=== PATIENT | female | born 1945 | race Caucasian/White ===

== ENCOUNTER 2017-07-07 19:03 | Inpatient (IN) | payer MEDICARE, MEDICAID ==
[2017-07-07 19:28] VITALS: BMI 29.0
[2017-07-07 20:35] LABS: BASO # 0.02 K/mm3 (0.0-2.0); BASO % 0.4 % (0.0-3.0); EOS % 0.6 % (1.5-5.0); GRAN # 2.34 (1.4-6.5); GRAN % 44.2 % (50.0-68.0); HEMOGLOBIN 11.3 g/dL (12.0-16.0); LYMPH # 2.4 (1.2-3.4); LYMPH % 45.2 % (22.0-35.0); MEAN CELL VOLUME 86.9 fl (80.0-105.0); MEAN CORPUSCULAR HEMOGLOBIN 27.8 pg (25.0-35.0); MEAN PLATELET VOLUME 10.1 fl (7.0-11.0); MONO # 0.5 (0.1-0.6); MONO % 9.6 % (1.0-6.0); RBC 4.06 10^6/uL (3.5-6.1); RED CELL DISTRIBUTION WIDTH 15.3 % (11.5-14.5); WHITE BLOOD COUNT 5.3 10^3/ul (4.5-11.0)
[2017-07-07 20:45] LABS: ALB/GLOB RATIO 1.1 (1.1-1.8); ALBUMIN 3.7 g/dL (3.0-4.8); ALT/SGPT 96 U/L (7-56); AST/SGOT 150 U/L (14-36); BLOOD UREA NITROGEN 29 mg/dL (7-21); CALCIUM 9.1 mg/dL (8.4-10.5); GFR AFRICAN-AMERICAN > 60; GFR NON-AFRICAN AMERICAN > 60; HDL CHOLESTEROL 31 mg/dL (29-60)
[2017-07-07 20:48] LABS: INR 1.02 (0.93-1.08); PARTIAL THROMBOPLASTIN TIME 27.2 Seconds (25.1-36.5); PROTHROMBIN TIME 11.6 SECONDS (9.4-12.5)
[2017-07-07 20:56] LABS: LDL CHOLESTEROL 113 mg/dL (0-129)
[2017-07-07 20:58] LABS: TROPONIN I < 0.01 ng/mL
--- NOTE | 2017-07-07 21:18 | ED PDOC ---
Arrival/HPI - General Chief Complaint: Trauma Time Seen by Provider: 07/07/17 19:18 Historian: Patient - History of Present Illness Narrative History of Present Illness (Text): 07/07/17 19:40 Briana Dobbins is a 72 year old female, whose past medical history includes TIA, who presents to the Emergency department complaining of recurrent falls. Patient states she has fallen multiple tomes over the past 3 days and notes associated left-sided weakness. Patient also report she was on the floor for approximately 16 hours 2 days prior after falling. Patient denies any fever, chest pain, shortness of breath, nausea, vomiting, neck pain, or any other complaints. Time/Duration: < week (3 days) Symptom Onset: Gradual Symptom Course: Unchanged Activities at Onset: Light Context: Home Past Medical History - Provider Review Nursing Documentation Reviewed: Yes - Tetanus Immunization Tetanus Immunization: Unknown - Cardiac Hx Cardiac Disorders: No Hx Pacemaker: No - Pulmonary Hx Respiratory Disorders: No - Neurological Hx Neurological Disorder: No Hx Paralysis: No - HEENT Hx HEENT Disorder: No - Renal Hx Renal Disorder: No - Endocrine/Metabolic Hx Endocrine Disorders: No - Hematological/Oncological Hx Blood Disorders: No Hx Blood Transfusions: No Hx Blood Transfusion Reaction: No - Integumentary Hx Dermatological Disorder: No - Musculoskeletal/Rheumatological Hx Musculoskeletal Disorders: Yes Hx Arthritis: Yes Hx Falls: Yes - Gastrointestinal Hx Gastrointestinal Disorders: No - Genitourinary/Gynecological Hx Genitourinary Disorders: No - Psychiatric Hx Psychophysiologic Disorder: No Hx Emotional Abuse: No Hx Physical Abuse: No Hx Substance Use: No - Surgical History Other/Comment: cervical fusion, bunion sx - Anesthesia Hx Anesthesia Reactions: No Hx Malignant Hyperthermia: No - Suicidal Assessment Feels Threatened In Home Enviroment: No Family/Social History - Physician Review Nursing Documentation Reviewed: Yes Family/Social History: Unknown Family HX Smoking Status: Never Smoked Hx Alcohol Use: No Hx Substance Use: No Allergies/Home Meds Allergies/Adverse Reactions: Allergies No Known Allergies Allergy (Verified 11/04/12 16:41) Home Medications: Home Meds Medication Instructions Recorded Confirmed Clopidogrel [Plavix] 75 mg PO DAILY 11/04/12 07/08/17 Valsartan [Diovan] 80 mg PO DAILY 11/04/12 07/08/17 Calcium Carbonate [Caltrate 600] 600 mg PO DAILY 06/26/13 06/26/13 Fish Oil 1 cap PO DAILY 06/26/13 06/26/13 Methotrexate [Methotrexate] 25 mg PO QD7 07/08/17 07/08/17 valACYclovir [Valtrex] 500 mg PO DAILY 07/08/17 07/08/17 Review of Systems - Physician Review All systems were reviewed & negative as marked: Yes - Review of Systems Constitutional: Normal. absent: Fevers Eyes: Normal ENT: Normal Respiratory: Normal. absent: SOB, Cough Cardiovascular: Normal. absent: Chest Pain Gastrointestinal: Normal. absent: Abdominal Pain, Diarrhea, Nausea, Vomiting Genitourinary Female: Normal. absent: Dysuria, Frequency, Hematuria, Urine Output Changes Musculoskeletal: Normal. absent: Back Pain, Neck Pain (+left-sided weakness) Skin: Normal. absent: Rash Neurological: Focal Weakness (+left-sided weakness), Other (+recurrent falls). absent: Dizziness Endocrine: Normal Hemo/Lymphatic: Normal Psychiatric: Normal Physical Exam Vital Signs Reviewed: Yes Vital Signs Temp Pulse Resp BP Pulse Ox 07/08/17 14:34 20 07/08/17 09:09 98.1 F 74 17 98 07/08/17 04:45 62 18 112/63 98 07/08/17 02:15 98.0 F 73 18 103/48 L 96 07/07/17 22:17 76 18 131/42 L 96 07/07/17 19:18 97.7 F 80 16 105/59 L 98 Temperature: Afebrile Blood Pressure: Normal Pulse: Regular Respiratory Rate: Normal Appearance: Positive for: Well-Appearing, Non-Toxic, Comfortable Pain Distress: None Mental Status: Positive for: Alert and Oriented X 3 - Systems Exam Head: Present: Atraumatic, Normocephalic Pupils: Present: PERRL Extroacular Muscles: Present: EOMI Conjunctiva: Present: Normal Mouth: Present: Moist Mucous Membranes Neck: Present: Normal Range of Motion Respiratory/Chest: Present: Clear to Auscultation, Good Air Exchange. No: Respiratory Distress, Accessory Muscle Use Cardiovascular: Present: Regular Rate and Rhythm, Normal S1, S2. No: Murmurs Abdomen: Present: Normal Bowel Sounds. No: Tenderness, Distention, Peritoneal Signs Back: Present: Normal Inspection Upper Extremity: Present: Normal Inspection. No: Cyanosis, Edema Lower Extremity: Present: Capillary Refill < 2 s, Other (Left lower extremity weakness). No: Edema, Tenderness, Swelling, Erythema, Deformity Neurological: Present: GCS=15, CN II-XII Intact, Speech Normal Skin: Present: Warm, Dry, Normal Color. No: Rashes Psychiatric: Present: Alert, Oriented x 3, Normal Insight, Normal Concentration Medical Decision Making ED Course and Treatment: 07/07/17 19:40 Impression: 72 year old female complaining of recurrent falls and left-sided weakness for 3 days. Plan: -- EKG -- Chest X-Ray -- CT Head w/o contrast -- Labs, lipid panel, troponin, blood type and screen -- Reassess and disposition Progress Notes: Reviewed EKG, NSR at [address] bpm[address] Non-specific ST/T wave changes. 07/07/17 23:16 Chest X-Ray reviewed, shows no acute processes. CT Head shows: Brain: Hypodense lacunar infarcts are identified within the bilateral basal ganglia. A few of these lacunar infarcts are too small to determine acuity. Otherwise, these findings are predominantly subacute or chronic. A small hypodense lacunar infarct is also visualized within the left thalamus. Hypodense lacunar infarcts are visualized within the shelbi, which appear to be subacute. There is extensive cerebral white matter hypodensity, likely representing small vessel ischemic disease in a patient this age. The acuity of the white matter disease is indeterminate. The white-hernandez differentiation is otherwise preserved demonstrating no acute territorial type infarct. No acute intracranial hemorrhage is seen. Midline shift: There is no midline shift. Ventricles: No ventriculomegaly. Bones/joints: The calvarium demonstrates no evidence for a depressed fracture. Soft tissues: No acute abnormality. Vasculature: There is atherosclerotic calcification of the cavernous internal carotid arteries. Sinuses: There is mucosal thickening of the bilateral ethmoid air cells, sphenoid sinuses, frontal sinuses and maxillary sinuses. Air-fluid levels are also visualized within the maxillary sinuses, right side greater than left. Mastoid air cells: No mastoid effusion. IMPRESSION: 1. Hypodense lacunar infarcts are identified within the bilateral basal ganglia. A few of these lacunar infarcts are too small to determine acuity. Otherwise, these findings are predominantly subacute or chronic. A small hypodense lacunar infarct is also visualized within the left thalamus. 2. Hypodense lacunar infarcts are visualized within the shelbi, which appear to be subacute. If further evaluation is clinically indicated, an MRI of the brain is recommended. 3. No acute intracranial hemorrhage. 4. There is extensive cerebral white matter hypodensity, likely representing small vessel ischemic disease in a patient this age. 5. Paranasal sinus disease is noted above. 07/07/17 23:[address] Sinclair, who is aware and agrees with plan. Accepts pt in to her service. Pt will go to remote telemetry for cerebral infarction. - Lab Interpretations Lab Results: 07/07/17 20:10 07/07/17 20:10 Lab Results 07/07/17 20:10: Blood Type O POSITIVE, Antibody Screen Negative, BBK History Checked No verified bt 07/07/17 20:10: Hemoglobin A1c 7.1 H 07/07/17 20:10: Sodium 137, Potassium 3.8, Chloride 100, Carbon Dioxide 29, Anion Gap 12, BUN 29 H, Creatinine 0.8, Est GFR ( Amer) > 60, Est GFR ( Non-Af Amer) > 60, Random Glucose 128 H, Calcium 9.1, Total Bilirubin 0.4, AST 150 H, ALT 96 H, Alkaline Phosphatase 77, Troponin I < 0.01, Total Protein 7.0, Albumin 3.7, Globulin 3.2, Albumin/Globulin Ratio 1.1, Triglycerides 155, Cholesterol 165, LDL Cholesterol Direct 113, HDL Cholesterol 31 07/07/17 20:10: PT 11.6, INR 1.02, APTT 27.2 07/07/17 20:10: WBC 5.3, RBC 4.06, Hgb 11.3 L, Hct 35.3 L, MCV 86.9, MCH 27.8, MCHC 32.0, RDW 15.3 H, Plt Count 229, MPV 10.1, Gran % 44.2 L, Lymph % (Auto) 45.2 H, [place] % (Auto) 9.6 H, Eos % (Auto) 0.6 L, Baso % (Auto) 0.4, Gran # 2.34 , Lymph # (Auto) 2.4, [place] # (Auto) 0.5, Eos # (Auto) 0.0, Baso # (Auto) 0.02 I have reviewed the lab results: Yes - RAD Interpretation Radiology Orders: 07/07/17 19:41 HEAD W/O CONTRAST [CT] Stat CHEST PORTABLE [RAD] Stat Asbestos Shingle Inspector: ED Physician, Radiologist - EKG Interpretation Interpreted by ED Physician: Yes Type: 12 lead EKG - Medication Orders Current Medication Orders: Acetaminophen (Tylenol 325mg Tab) 650 mg PO Q4H PRN PRN Reason: Pain, Mild (1-3) Aspirin (Ecotrin) 81 mg PO DAILY [facility] Last Admin: 07/09/17 10:01 Dose: Not Given Non-Admin Reason: Patient Refused Atorvastatin Calcium (Lipitor) 20 mg PO DIN [facility] Last Admin: 07/09/17 17:38 Dose: 20 mg Clopidogrel Bisulfate (Plavix) 75 mg PO DAILY [facility] Last Admin: 07/09/17 09:58 Dose: 75 mg Losartan Potassium (Cozaar) 50 mg PO DAILY [facility] Last Admin: 07/09/17 09:55 Dose: 50 mg MAR Pulse and Blood Pressure Document 07/09/17 09:55 BIR (Rec: 07/09/17 09:56 BIR [id number]) Pulse Pulse Rate (60-90) 73 Blood Pressure Blood Pressure (100/60-150/90) 122/80 NIHSS Scale ([place]) Time Performed: 19:40 - How Severe is the Stoke Baseline Level of Consciousness: 0=Alert LOC to Questions: 0=Both comments correct LOC to commands: 0=Obeys both correctly Best Gaze: 0=Normal Visual: 0=No visual loss Facial: 0=Normal Motor Arm - Left: 0=No drift Motor Arm - Right: 0=No drift Motor Leg - Left: 1=Drift before 5 sec Motor Leg - Right: 0=No drift Limb Ataxia: 0=Absent Sensory: 0=Normal Best Language: 0=No aphasia Dysarthia: 0=Normal articulation Extinction & Inattention (Neglect): 0=Normal, no object Score: 1 Risk Level: Minor Stroke Risk rTPA Inclusion/Exclusion - Refusal of Treatment Patient Refused Treatment: No - Inclusion Criteria for Altepase Patient is 18 years or Older: Yes The Clinical Diagnosis of Ischemic Stroke That is Causing a Potentially Disabling Neurological Deficit: No Time of Onset is Well Established to be Less Than 270 Minute Before Treatment Would Begin: No Risk/Benefit Discussed With Patient/Family Member Present: No - Exclusion Criteria for Altepase Uncontrolled Hypertension at Time of Treatment (Systolic BP above 185 or Diastolic BP above 110 mmHg): No Active Internal Bleeding: No Known Bleeding Diathesis Including but Not Limited to: Platelets Below 100,000/ mm,PTT Above 40 sec After Heparin Use, Current Use of Oral Anitcoagulant With INR Greater Than 1.7 or PT Greater Than 15 secs: No Evidence of an Intracranial Hemorrhage: No Evidence of Major Acute Infarct With Signs Greater Than 1/3 MCA Territory: No Suspicion of Subarachnoid Hemorrhage on Pretreatment Evaluation Even if CT Head Negative For Hemorrhage: No - Warning to TPA With Conditions Following Conditions Weighed Against Anticipated Benefit: No - Scribe Statement The provider has reviewed the documentation as recorded by the Raul Valles Provider Scribe Attestation: All medical record entries made by the Raul were at my direction and personally dictated by me. I have reviewed the chart and agree that the record accurately reflects my personal performance of the history, physical exam, medical decision making, and the department course for this patient. I have also personally directed, reviewed, and agree with the discharge instructions and disposition. Disposition/Present on Arrival - Present on Arrival Any Indicators Present on Arrival: No History of DVT/PE: No History of Uncontrolled Diabetes: No Urinary Catheter: No History of Decub. Ulcer: No History Surgical Site Infection Following: None - Disposition Have Diagnosis and Disposition been Completed?: Yes Diagnosis: Transient ischemic attack (TIA) Disposition: HOSPITALIZED Disposition Time: 02:00 Patient Problems: Current Active Problems Problem Status Onset Transient ischemic attack (TIA) Acute Condition: FAIR
--- NOTE | 2017-07-07 22:22 | CT ---
EXAM: CT Head Without Intravenous Contrast EXAM DATE/TIME: 07/07/2017 7:41 PM CLINICAL HISTORY: The patient age is 72 years old and is female; Signs and symptoms; Other: CVA Facility exam id and description: Ct heads head w/o contrast TECHNIQUE: Axial computed tomography images of the head/brain without intravenous contrast. All CT scans at this facility use one or more dose reduction techniques, viz.: automated exposure control; ma/kV adjustment per patient size (including targeted exams where dose is matched to indication; i.e. head); or iterative reconstruction technique. Coronal and sagittal reformatted images were created and reviewed. COMPARISON: No relevant prior studies available. FINDINGS: Brain: Hypodense lacunar infarcts are identified within the bilateral basal ganglia. A few of these lacunar infarcts are too small to determine acuity. Otherwise, these findings are predominantly subacute or chronic. A small hypodense lacunar infarct is also visualized within the left thalamus. Hypodense lacunar infarcts are visualized within the shelbi, which appear to be subacute. There is extensive cerebral white matter hypodensity, likely representing small vessel ischemic disease in a patient this age. The acuity of the white matter disease is indeterminate. The white-hernandez differentiation is otherwise preserved demonstrating no acute territorial type infarct. No acute intracranial hemorrhage is seen. Midline shift: There is no midline shift. Ventricles: No ventriculomegaly. Bones/joints: The calvarium demonstrates no evidence for a depressed fracture. Soft tissues: No acute abnormality. Vasculature: There is atherosclerotic calcification of the cavernous internal carotid arteries. Sinuses: There is mucosal thickening of the bilateral ethmoid air cells, sphenoid sinuses, frontal sinuses and maxillary sinuses. Air-fluid levels are also visualized within the maxillary sinuses, right side greater than left. Mastoid air cells: No mastoid effusion. IMPRESSION: 1. Hypodense lacunar infarcts are identified within the bilateral basal ganglia. A few of these lacunar infarcts are too small to determine acuity. Otherwise, these findings are predominantly subacute or chronic. A small hypodense lacunar infarct is also visualized within the left thalamus. 2. Hypodense lacunar infarcts are visualized within the shelbi, which appear to be subacute. If further evaluation is clinically indicated, an MRI of the brain is recommended. 3. No acute intracranial hemorrhage. 4. There is extensive cerebral white matter hypodensity, likely representing small vessel ischemic disease in a patient this age. 5. Paranasal sinus disease is noted above.
--- NOTE | 2017-07-08 07:59 | CP.PCM.CON ---
<Ivonne Barton - Last Filed: 07/08/17 11:26> History of Present Illness - History of Present Illness History of Present Illness: Consult: Falls Ms Briana Dobbins, 72F, with PMH CVA with residual LLE weakness and numbess and arthritis newly on methotrexate for 2 weeks, c/o recurrent falls. Patient states she has fallen x 3 in the past 3 days. For fall #1, pt slipped down from recliner, no dizziness/LOC/change of vision. Pt was on the floor for 20 hours before son came to pick her up. For fall #2, same as fall #1, called 911. EMS came to pick her up. Pt refuses to go to hospital. Fall #3, slipped and fall in the bathroom as preparing to go for shower. ROS - (+) new medication changes: Methtrexate Rx by neurologist; Valtrex for genital herpes (+) LLE weakness and numbess unchanged. Denied fever, chills, Headache, chest pain, shortness of breath, nausea, vomiting, diarrhea, neck pain, or dysuria. In the ED, BP fluctates from normal to 100s/40s. EKG: NSR at [address] bpm. Non-specific ST/T wave changes. CT Head: (+) Hypodense lacunar infarcts @ bilateral basal ganglia + L thalamus + Shelbi, subacute or chronic. 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 Disc osteophyte @c4 with minimal ventral cord deformity PMH: CVA @ basal ganglia, thalamus, and shelbi, with LLE weakness and numbness Arthritis Degenerative spondylosis of thoracic spine Hx Falls Hx Shingles Currently treating for genital herpes PSH: Cervical fusion with laminectomy C2-C4, 2008 bunion sx Hemmoroidectomy SH: Denied smoke, drink, drug. Live alone All: NKDA Med: Plavix Valsartan Outpt neurologist: Dr Jonathan Katz Review of Systems - Review of Systems All systems: reviewed and no additional remarkable complaints except Review of Systems: as in HPI Past Patient History - Tetanus Immunizations Tetanus Immunization: Unknown - Past Social History Smoking Status: Never Smoked - CARDIAC Hx Cardiac Disorders: No Hx Pacemaker: No - PULMONARY Hx Respiratory Disorders: No - NEUROLOGICAL Hx Neurological Disorder: No Hx Paralysis: No - HEENT Hx HEENT Problems: No - RENAL Hx Chronic Kidney Disease: No - ENDOCRINE/METABOLIC Hx Endocrine Disorders: No - HEMATOLOGICAL/ONCOLOGICAL Hx Blood Disorders: No Hx Blood Transfusions: No Hx Blood Transfusion Reaction: No - INTEGUMENTARY Hx Dermatological Problems: No - MUSCULOSKELETAL/RHEUMATOLOGICAL Hx Musculoskeletal Disorders: Yes Hx Arthritis: Yes Hx Falls: Yes - GASTROINTESTINAL Hx Gastrointestinal Disorders: No - GENITOURINARY/GYNECOLOGICAL Hx Genitourinary Disorders: No - PSYCHIATRIC Hx Psychophysiologic Disorder: No Hx Emotional Abuse: No Hx Physical Abuse: No Hx Substance Use: No - SURGICAL HISTORY Other/Comment: cervical fusion, bunion sx - ANESTHESIA Hx Anesthesia Reactions: No Hx Malignant Hyperthermia: No Meds Allergies/Adverse Reactions: Allergies Allergy/AdvReac Type Severity Reaction Status Date / Time No Known Allergies Allergy Verified 11/04/12 16:41 - Medications Medications: Current Medications Acetaminophen (Tylenol 325mg Tab) 650 mg PO Q4H PRN PRN Reason: Pain, Mild (1-3) Physical Exam - Constitutional Appears: Well - Head Exam Head Exam: ATRAUMATIC, NORMAL INSPECTION, NORMOCEPHALIC - Eye Exam Eye Exam: EOMI, Normal appearance, PERRL. absent: Scleral icterus Pupil Exam: NORMAL ACCOMODATION - ENT Exam ENT Exam: Mucous Membranes Moist Additional comments: Missing incisors - Neck Exam Additional comments: supple - Respiratory Exam Respiratory Exam: Clear to Auscultation Bilateral, NORMAL BREATHING PATTERN. absent: Rales, Rhonchi, Wheezes - Cardiovascular Exam Cardiovascular Exam: REGULAR RHYTHM, +S1, +S2 - GI/Abdominal Exam GI & Abdominal Exam: Normal Bowel Sounds, Soft. absent: Tenderness - Extremities Exam Extremities exam: Positive for: pedal pulses present. Negative for: calf tenderness, pedal edema - Back Exam Back exam: absent: paraspinal tenderness - Neurological Exam Neurological exam: Alert, CN II-XII Intact, Oriented x3, Reflexes Normal Additional comments: Speech: No aphasia Recall: 2/3 Motor: 5/5 UE bilaterally; 4/5 RLE; 4-/5 RLE Sensory: intact [id number] coordination: no tremor. intact Rapid-alternating movement: intact Babinski: upwards Results - Vital Signs Recent Vital Signs: Last Vital Signs Temp 98.0 F 07/08/17 02:15 Pulse 62 07/08/17 04:45 Resp 18 07/08/17 04:45 BP 112/63 07/08/17 04:45 Pulse Ox 98 07/08/17 04:45 - Labs Result Diagrams: 07/07/17 20:10 07/07/17 20:10 Labs: Laboratory Results - last 24 hr 07/08/17 07/08/17 04:38 07:34 POC Glucose (mg/dL) 108 Blood Type Confirm O POSITIVE Assessment & Plan - Assessment and Plan (Free Text) Plan: Ms Briana Dobbins, 72F, with PSH of Cervical fusion with laminectomy C2-C4, and PMH of CVA with residual LLE weakness and numbess, arthritis newly on methotrexate for 2 weeks, and actively being treated for genital herpes with valtrex, c/o recurrent falls x 3 in 3 days. Denies LOC, dizziness, change of vision, or suddening worse of chronic weakness. Physical exam is significant for lower extremity weakness bilaterally, likely chronic. CT head showed (+) Hypodense lacunar infarcts @ bilateral basal ganglia + L thalamus + Shelbi, subacute or chronic. 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 Disc osteophyte @c4 with minimal ventral cord deformity. In the ED, pt had 2 episode of blood pressure around 100s/40s-50s Falls likely from (a) transient cerebral hypoperfusion from transient hypotension or (b) deconditioned state due to past CVA vs cervical myelomalacia - Carotid doppler u/s, Pending official read - Orthostatic vs, pending - physical therapy eval - maintain SBP 120-130 - maintain hydration throughout the day s/r/d/w Dr. Atkinson. <Aleksandar Atkinson - Last Filed: 07/08/17 12:10> Meds - Medications Medications: Current Medications Acetaminophen (Tylenol 325mg Tab) 650 mg PO Q4H PRN PRN Reason: Pain, Mild (1-3) Clopidogrel Bisulfate (Plavix) 75 mg PO DAILY [facility] Results - Vital Signs Recent Vital Signs: Last Vital Signs Temp 98.0 F 07/08/17 02:15 Pulse 62 02/01/18 04:45 Resp 18 07/08/17 04:45 BP 112/63 07/08/17 04:45 Pulse Ox 98 07/08/17 04:45 - Labs Result Diagrams: 07/07/17 20:10 07/07/17 20:10 Labs: Laboratory Results - last 24 hr 07/08/17 07/08/17 04:38 07:34 POC Glucose (mg/dL) 108 Blood Type Confirm O POSITIVE Attending/Attestation - Attestation I have personally seen and examined this patient.: Yes I have fully participated in the care of the patient.: Yes I have reviewed all pertinent clinical information: Yes
--- NOTE | 2017-07-08 08:33 | RAD ---
HISTORY: cva COMPARISON: 06/26/2013 FINDINGS: LUNGS: No active pulmonary disease. PLEURA: No significant pleural effusion identified, no pneumothorax apparent. CARDIOVASCULAR: Normal. OSSEOUS STRUCTURES: No significant abnormalities. VISUALIZED UPPER ABDOMEN: Normal. OTHER FINDINGS: None. IMPRESSION: No active disease.
--- NOTE | 2017-07-08 14:03 | US ---
HISTORY: abnormal LFTS COMPARISON: None. TECHNIQUE: Sonographic evaluation of the abdomen. FINDINGS: LIVER: Measures 14.6 cm. Diffusely increased echogenicity of the liver parenchyma. Consistent with fatty infiltration. No mass. No intrahepatic biliary ductal dilatation. GALLBLADDER: Unremarkable. No gallstones. COMMON BILE DUCT: Measures 9 mm. No evidence of choledocholithiasis. Significance uncertain in the absence of intrahepatic biliary dilatation. Please correlate with laboratory testing. PANCREAS: Unremarkable as visualized. No mass. No ductal dilatation. RIGHT KIDNEY: Measures 11.0cm. Normal echogenicity. No calculus, mass, or hydronephrosis. LEFT KIDNEY: Measures 10.5cm. Normal echogenicity. No calculus, mass, or hydronephrosis. SPLEEN: Normal in size and contour. No mass. AORTA: No aneurysmal dilatation. IVC: Unremarkable. OTHER FINDINGS: None. IMPRESSION: Mildly dilated CBD. No evidence of cholelithiasis or choledocholithiasis. No intrahepatic biliary dilatation. Fatty infiltration of the liver.
--- NOTE | 2017-07-08 15:32 | US ---
PROCEDURE: Bilateral carotid duplex ultrasound HISTORY: Carotid stenosis PHYSICIAN(S): Arthur Grigsby MD. TECHNIQUE: Duplex sonography and color-flow Doppler were used to evaluate the carotid bifurcations and limited segments of the vertebral arteries bilaterally. FINDINGS: There is mild smooth heterogeneous plaque noted at the carotid bifurcations bilaterally. The peak systolic velocity in the proximal right internal carotid artery is 93 cm/sec. This corresponds to a 20 to 39% proximal right ICA stenosis. Normal systolic velocities are noted in the proximal right external carotid artery. There is antegrade flow in the right vertebral artery. The peak systolic velocity in the proximal left internal carotid artery is 103 cm/sec. This corresponds to a 20 to 39% proximal left ICA stenosis. Normal systolic velocities are noted in the proximal left external carotid artery. There is antegrade flow in the left vertebral artery. IMPRESSION: 1. Bilateral 20-39% proximal ICA stenoses. 2. Antegrade flow in both vertebral arteries.
--- NOTE | 2017-07-08 16:14 | CARD ---
APPROVED REPORT EKG Measurement Heart [id number] PA [id number] <Conclusion> Normal sinus rhythm Inferior infarct, age undetermined Abnormal ECG
[2017-07-08] MEDS ORDERED: Gadodiamide 287 MG/ML VIAL (15ML) IV ONE (18:37)
--- NOTE | 2017-07-08 20:26 | MRI ---
EXAM: MR Head Without and With Intravenous Contrast EXAM DATE/TIME: 07/08/2017 5:45 PM CLINICAL HISTORY: 72 years old, female; Signs and symptoms; Other: Multiple falls TECHNIQUE: Magnetic resonance images of the head/brain without and with intravenous contrast in multiple planes. CONTRAST: 15 mL of OMNISCAN administered intravenously. COMPARISON: Recent head CT 2017-07-07 21:18 FINDINGS: BRAIN: Abnormal increased T2 signal in the basal ganglia bilaterally, diffuse in nature, involving the caudate nuclei, lentiform nuclei, and thalami bilaterally, which appears symmetric. No associated restricted diffusion or abnormal enhancement Abnormal increased T2 signal in the anterior temporal lobes bilaterally, involving the white matter. This appears symmetric. No associated restricted diffusion or abnormal enhancement. Appearance is suspicious for nonspecific gliosis. Extensive areas of increased T2 signal in the white matter bilaterally. This is a nonspecific finding, however, most likely representing chronic small vessel ischemic changes, in a patient of this age. Findings compatible with a chronic lacunar infarct in the left thalamus. No other significant abnormality identified. No evidence of restricted diffusion/acute infarct. No signal abnormality seen to suggest acute intracranial hemorrhage. No evidence of abnormal intracranial enhancement on the postcontrast images. No acute extra-axial fluid collections visualized. VENTRICLES: No evidence of significant hydrocephalus. BONES/JOINTS: No acute bony abnormality identified. SINUSES: Sinus inflammatory disease. There is mucosal thickening in the bilateral maxillary, sphenoid and ethmoid sinuses. MASTOID AIR CELLS: Mastoid air cells appear clear. ORBITS: No acute intraorbital abnormality seen. IMPRESSION: - Diffuse signal abnormality in the basal ganglia bilaterally and the anterior temporal white matter bilaterally. There is no associated acute ischemic change or abnormal enhancement. Findings are of uncertain etiology, however, could be secondary to chronic hypoxic ischemic injury or chronic toxic or metabolic injury. Recommend clinical correlation. - No evidence of acute infarct or acute hemorrhage. - No evidence of enhancing intracranial masses. - See above for remaining findings.
--- NOTE | 2017-07-09 02:10 | HP ---
SUBJECTIVE: Patient is a 72-year-old, who states she has been frequently falling and she had 3 falls within the last week or two. She is very unstable, unable to walk straight, complaining of feeling very dizzy also. Denies any fever or chills. No history of nausea or vomiting. No history of diarrhea. PAST MEDICAL HISTORY: Significant for CVA with right lower extremity weakness and numbness. She also has been diagnosed with arthritis lately, has been started on methotrexate 2 to 3 weeks ago. Patient states, out of the 3 falls, last fall was in the bathroom. She slipped in the bathroom as she was preparing to go for shower. Past medical history is also significant for: 1. Hypertension. 2. History of shingles. 3. Degenerative cervical disk disease, had some surgical interventions done at that point. 4. History of CVA of basal ganglia, thalamus and shelbi and that caused left lower extremity numbness. PAST SURGICAL HISTORY: Significant for bunion surgery, hemorrhoidectomy and cervical spine fusion. SOCIAL HISTORY: Denies smoking and drinking alcohol. She is and lives with her . MEDICATIONS: At home, she is on Plavix and valsartan. REVIEW OF SYSTEMS: Generalized weakness, feeling weak, unstable gait. PHYSICAL EXAMINATION GENERAL: She is awake, alert, oriented and communicative. VITAL SIGNS: She is afebrile. Pulse 73, respirations 18, blood pressure 103/48. LUNGS: Bilateral fair airflow. No rhonchi or crackles. HEART: S1 and S2 audible. ABDOMEN: Soft. Nontender. No rebound. No guarding. NEUROLOGIC: The patient is awake and alert, able to communicate, and moves all extremities except she has numbness in the right lower extremity. Upper extremity has full strength and sensation. LABORATORY DATA: WBC is 5.3, hemoglobin 11, hematocrit 35, platelet of 229. PT 11.6, INR 1.02. Chemistry, sodium 137, potassium 3.8, chloride 100, CO2 of 29, BUN 29, creatinine 0.8, blood sugar of 104, hemoglobin A1c is 7.1, AST 150, ALT 95. She had ultrasound of the abdomen done that shows mildly dilated common bile duct, no evidence of cholelithiasis or choledocholithiasis. No intrahepatic biliary dilation. Fatty infiltration of the liver is noted. She has carotid Doppler and carotid artery ultrasound done. She has bilateral 20% to 39% blockage. ASSESSMENT: 1. Multiple falls and unstable gait. 2. Vertigo. 3. History of cerebrovascular accident in the past. 4. Recently diagnosed rheumatoid arthritis. PLAN: Currently patient is on Plavix and we will start her on losartan and request for physical therapy evaluation, and Neuro consult by Dr. Atkinson has been recommended; an order for CT scan and need MRI and MRA of the brain. We will follow up this patient. Berkley Sinclair MD
[2017-07-09 07:12] LABS: FREE T4 1.33 ng/dL (0.78-2.19)
--- NOTE | 2017-07-09 11:26 | CP.PCM.PN ---
<Ivonne Barton - Last Filed: 07/09/17 11:23> Subjective - Date & Time of Evaluation Date of Evaluation: 07/09/17 Time of Evaluation: 09:00 - Subjective Subjective: Neurology PGY-[address] Atkinson Pt stated that her balance is off, pending PT eval. No other acute complaint Objective - Vital Signs/Intake and Output Vital Signs (last 24 hours): Temp Pulse Resp BP Pulse Ox 97.4 F L 73 18 122/80 96 07/09/17 08:15 07/09/17 09:55 07/09/17 08:15 07/09/17 09:55 07/09/17 08:15 Intake and Output: 07/09/17 07/09/17 06:59 18:59 Intake Total 540 Balance 540 - Medications Medications: Current Medications Acetaminophen (Tylenol 325mg Tab) 650 mg PO Q4H PRN PRN Reason: Pain, Mild (1-3) Aspirin (Ecotrin) 81 mg PO DAILY [facility] Last Admin: 07/09/17 10:01 Dose: Not Given Atorvastatin Calcium (Lipitor) 20 mg PO DIN [facility] Clopidogrel Bisulfate (Plavix) 75 mg PO DAILY [facility] Last Admin: 07/09/17 09:58 Dose: 75 mg Losartan Potassium (Cozaar) 50 mg PO DAILY [facility] Last Admin: 07/09/17 09:55 Dose: 50 mg - Labs Labs: PT 11.6 SECONDS (9.4-12.5) 07/07/17 20:10 INR 1.02 (0.93-1.08) 07/07/17 20:10 APTT 27.2 Seconds (25.1-36.5) 07/07/17 20:10 - Constitutional Appears: No Acute Distress - Head Exam Head Exam: ATRAUMATIC, NORMAL INSPECTION, NORMOCEPHALIC - Eye Exam Eye Exam: EOMI, Normal appearance, PERRL. absent: Scleral icterus Pupil Exam: NORMAL ACCOMODATION - ENT Exam ENT Exam: Mucous Membranes Moist - Neck Exam Additional comments: supple - Respiratory Exam Respiratory Exam: Clear to Ausculation Bilateral, NORMAL BREATHING PATTERN - Cardiovascular Exam Cardiovascular Exam: REGULAR RHYTHM, +S1, +S2. absent: Murmur - GI/Abdominal Exam GI & Abdominal Exam: Soft, Normal Bowel Sounds. absent: Tenderness - Extremities Exam Extremities Exam: Normal Inspection. absent: Calf Tenderness, Pedal Edema - Neurological Exam Neurological Exam: Alert, Awake, Oriented x3 Additional comments: Speech: No aphasia Recall: 2/3 Motor: 5/5 UE bilaterally; 4/5 RLE; 4-/5 RLE Sensory: intact bzczig-[id number] coordination: no tremor. intact. Mildly overshoot Rapid-alternating movement: intact Babinski: upwards - Psychiatric Exam Psychiatric exam: Normal Affect, Normal Mood - Skin Skin Exam: Dry, Warm Assessment and Plan - Assessment and Plan (Free Text) Plan: Ms Briana Dobbins, 72F, with PSH of Cervical fusion with laminectomy C2-C4, and PMH of CVA with residual LLE weakness and numbess, arthritis newly on methotrexate for 2 weeks, and actively being treated for genital herpes with valtrex, c/o recurrent falls x 3 in 3 days. Denies LOC, dizziness, change of vision, or suddening worse of chronic weakness. Physical exam is significant for lower extremity weakness bilaterally, likely chronic. CT head showed (+) Hypodense lacunar infarcts @ bilateral basal ganglia + L thalamus + Xi, subacute or chronic. 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 Disc osteophyte @c4 with minimal ventral cord deformity. In the ED, pt had 2 episode of blood pressure around 100s/40s-50s Falls likely from (a) transient cerebral hypoperfusion from transient hypotension or (b) deconditioned state due to past CVA vs cervical myelomalacia - [facility] MRI: (+) diffuse signal abnormality in basal ganglia b/l and anterior temproal b/l - Carotid doppler u/s: bilateral 20-39% proximal ICA stenosis. anterior vertibral aa. flow - Orthostatic vs, pending - physical therapy eval - maintain SBP 120-130 - maintain hydration throughout the day A1C 7.1 Newly diagnosed diabetes - recommend carb consist diet - maintain blood sugar 140-180 in acute setting - continue plavix for secondary stroke prevention - diet and exercise counseling - nutritional consult - diabetic education consult s/r/d/w Dr. Atkinson. <Aleksandar Atkinson - Last Filed: 07/09/17 13:01> Objective - Vital Signs/Intake and Output Vital Signs (last 24 hours): Temp Pulse Resp BP Pulse Ox 97.4 F L 73 18 122/80 96 07/09/17 08:15 07/09/17 09:55 07/09/17 08:15 07/09/17 09:55 07/09/17 08:15 Intake and Output: 07/09/17 07/09/17 06:59 18:59 Intake Total 540 Balance 540 - Medications Medications: Current Medications Acetaminophen (Tylenol 325mg Tab) 650 mg PO Q4H PRN PRN Reason: Pain, Mild (1-3) Aspirin (Ecotrin) 81 mg PO DAILY [facility] Last Admin: 07/09/17 10:01 Dose: Not Given Atorvastatin Calcium (Lipitor) 20 mg PO DIN [facility] Clopidogrel Bisulfate (Plavix) 75 mg PO DAILY [facility] Last Admin: 07/09/17 09:58 Dose: 75 mg Losartan Potassium (Cozaar) 50 mg PO DAILY [facility] Last Admin: 07/09/17 09:55 Dose: 50 mg - Labs Labs: PT 11.6 SECONDS (9.4-12.5) 07/07/17 20:10 INR 1.02 (0.93-1.08) 07/07/17 20:10 APTT 27.2 Seconds (25.1-36.5) 07/07/17 20:10 Attending/Attestation - Attestation I have personally seen and examined this patient.: Yes I have fully participated in the care of the patient.: Yes I have reviewed all pertinent clinical information, including history, physical exam and plan: Yes
--- NOTE | 2017-07-10 07:36 | DS ---
SUBJECTIVE: Patient is a 72-year-old, seen and examined, seems to be doing better. She states she feels better today, less dizzy, eating well, no nausea or vomiting, no diarrhea, does complain of cough and congestion. PHYSICAL EXAMINATION: VITAL SIGNS: Patient is afebrile. Pulse 73, respirations 18, blood pressure 122/80. LUNGS: Bilateral good airflow. No rhonchi or crackles. HEART: S1 and S2 audible. ABDOMEN: Soft. Nontender. No rebound. No guarding. NEUROLOGIC: The patient is awake, alert, oriented, communicative. Able to ambulate with assistance. LABORATORY DATA: Blood sugar is 103, and had MRI of the brain done, they show diffuse signal abnormality in the basal ganglia bilaterally and anterior temporal white matter bilaterally, there is no associated acute ischemic changes or abnormal enhancement. Findings are consistent with chronic hypoxic ischemic injury. Bilateral carotid Doppler is negative. Abdominal ultrasound shows mildly dilated common bile duct, no evidence of cholelithiasis or choledocholithiasis. ASSESSMENT: 1. Status post multiple falls. 2. Unstable gait secondary to chronic vertigo and previous CVA with right-sided weakness. 3. Hypertension. 4. Hyperlipidemia. PLAN: The patient can be discharged home today. She will be maintained on losartan, aspirin, pravastatin and Plavix. She will follow up with PMD. She will be evaluated by physical therapist to evaluate if patient should get home PT. Berkley Sinclair MD
[2017-07-10 17:36] VITALS: O2SAT 97
--- NOTE | 2017-07-10 18:34 | PN ---
DATE: SUBJECTIVE: Patient is a 72-year-old, seen and examined, sitting in chair, seems to be comfortable, has less dizziness, participating in therapy, has unstable gait, recommending for TCU, awaiting to be transferred to TCU. Patient denies any nausea or vomiting. PHYSICAL EXAMINATION: VITAL SIGNS: Patient is afebrile. Pulse 54, respirations 18, blood pressure 120/69. LUNGS: Bilateral fair airflow. No rhonchi or crackles. HEART: S1 and S2 audible. ABDOMEN: Soft. Nontender. No rebound. No guarding. NEUROLOGIC: The patient is awake and alert, able to communicate. LABORATORY DATA: Blood sugar is 114. ASSESSMENT: 1. Status post multiple falls. 2. History of previous cerebrovascular accident with right hemiparesis. 3. Unstable gait. 4. Chronic vertigo. 5. Hyperlipidemia. 6. Hypertension. PLAN: Currently, patient is on losartan, aspirin and atorvastatin. She is on Plavix. Awaiting TCU evaluation and acceptance; once patient is accepted in TCU, she can be transferred. Berkley Sinclair MD
[2017-07-10] MEDS ORDERED: guaiFENesin 200 mg/10 ml Syrup UD PO ONE (20:53)
--- NOTE | 2017-07-11 16:13 | PN ---
DATE: 07/11/2017 HISTORY OF PRESENT ILLNESS: Ms. Dobbins is a 72-year-old female, admitted to the hospital with history of frequent fall. She has been dizzy. She has a history of CVA, right lower extremity weakness. She also has osteoarthritis. She currently also has rheumatoid arthritis, on methotrexate started recently. Also history of hypertension, fairly controlled on current medications; history shingles in the past, none recent. PAST MEDICAL HISTORY: Rheumatoid arthritis, history of CVA, hypertension, shingles, degenerative disk disease, CVA of basal ganglia. PAST SURGICAL HISTORY: Hemorrhoidectomy, cervical fusion, bunion surgery. SOCIAL HISTORY: Denies any smoking. No history of alcohol abuse. PERSONAL HISTORY: Lives at home. HOME MEDICATIONS: Aspirin, Plavix, losartan, methotrexate and Valtrex. REVIEW OF SYSTEMS: As per HPI. Rest of 12-point review of systems reviewed negative. PHYSICAL EXAMINATION: GENERAL: Comfortable in bed, in no acute distress. VITAL SIGNS: Temperature 98.7, heart rate 80 per minute, blood pressure 103/50, respiratory rate 18 per minute. HEENT: Pallor positive. NECK: No lymphadenopathy. CHEST: Air entry present and equal bilaterally. No added sounds. CARDIOVASCULAR: S1 and S2 normal. No murmur. No gallop. ABDOMEN: Soft, nontender. No hepatosplenomegaly. EXTREMITIES: No edema. SPINE: Nontender. SKIN: No petechiae. No rash. LABORATORY DATA: White count 5.3, hemoglobin 11.3, hematocrit 35.3, platelet 229, glucose 114, creatinine 0.8. CURRENT MEDICATIONS: Tylenol 650 q. 4 hours p.r.n., aspirin 81 mg daily, Lipitor 20 mg daily, Plavix 75 mg daily, Cozaar 50 mg daily, Valtrex 500 mg p.o. daily. ASSESSMENT: 1. History of cerebral infarction, previous cerebrovascular accident. 2. Vertigo, resolved. 3. Gait dysfunction. 4. Hypertension. 5. Rheumatoid arthritis. 6. Possible hypercoagulable state. 7. Anemia. PLAN: Continue current medications. Continue Lipitor 20 mg daily. Continue Plavix and aspirin. Continue Valtrex 500 mg p.o. daily for herpes prophylaxis. Continue Cozaar 50 mg daily. Hemoglobin and hematocrit stable. Mild anemia. Renal functions within normal limit. Glucose well controlled. Reny Ureña MD [facility] # [id number]
[2017-07-11] MEDS: guaiFENesin 100 mg/5 ml Syrup UD PO PRN (16:59)
[2017-07-12] MEDS: guaiFENesin 100 mg/5 ml Syrup UD PO PRN (06:52)
[2017-07-12 16:58] VITALS: BP 122/81; PULSE 74; RESP 19; TEMP 97.8
--- NOTE | 2017-07-13 11:09 | DS ---
HISTORY OF PRESENT ILLNESS: The patient is 72 years old, seen and examined, offered no complaints, generalized weakness, getting stronger to walk, complains of cough and congestion. PHYSICAL EXAMINATION: VITAL SIGNS: She is afebrile, pulse 65, respiration 18, blood pressure 129/77. LUNGS: Bilateral fair airflow. No rhonchi or crackle. HEART: S1, S2 audible. ABDOMEN: Soft, nontender. No rebound. No guarding. NEUROLOGIC: The patient is awake, alert, oriented, able to communicate. EXTREMITIES: Moves all extremities. She has subtle right lower extremity numbness and weakness because of previous stroke. ASSESSMENT: 1. History of cerebrovascular accident in the past. 2. Generalized weakness. 3. Vertigo, status post multiple falls. 4. Unstable gait. 5. History of rheumatoid arthritis. 6. Hypertension. 7. Chronic anemia. PLAN: Currently, the patient is on losartan, aspirin 81 daily. She is on atorvastatin, Plavix, and the patient is a candidate for subacute rehab versus TCU as soon as bed is available. The patient will be transferred to [facility] today. Berkley Sinclair MD
== END 2017-07-12 20:18 | DRG 315 ==
LOC: ED 19:03 → ERH 07-08 00:46 → 3RNO 07-08 17:00 → OBSVTOIN 07-09 14:49
PROVIDERS: ADMIT Internal Medicine; ATTEND Internal Medicine
DX: I95.89 Other hypotension (principal); I69.351 Hemiplegia and hemiparesis following cerebral infarction affecting right dominant side; A60.00 Herpesviral infection of urogenital system, unspecified; R42 Dizziness and giddiness; E11.9 Type 2 diabetes mellitus without complications; E78.5 Hyperlipidemia, unspecified; D64.9 Anemia, unspecified; R26.2 Difficulty in walking, not elsewhere classified; M06.9 Rheumatoid arthritis, unspecified; M47.814 Spondylosis without myelopathy or radiculopathy, thoracic region; I10 Essential (primary) hypertension; R29.6 Repeated falls; Z91.81 History of falling; Z79.899 Other long term (current) drug therapy

== ENCOUNTER 2018-08-10 09:10 | Outpatient (CLI) | payer MEDICARE, MEDICAID | END 2018-08-10 09:11 | disposition home or self-care (01) | LOC: RAD 09:10 ==

== ENCOUNTER 2018-08-25 06:20 | Day surgery (SDC) | payer MEDICARE, MEDICAID ==
[2018-07-22 13:17] VITALS: BMI 29.1
--- NOTE | 2018-08-24 22:04 | HP ---
DATE OF EXAM: 08/24/2018 REASON FOR ADMISSION: Left heart cath, possible angioplasty, abnormal stress test. BRIEF CLINICAL HISTORY: This is a 73-year-old female with a past medical history significant for hypertension, hyperlipidemia, history of CVA, stroke in the past, and hyperlipidemia who had abnormal stress. Patient was scheduled for elective cardiac cath possible angioplasty. PAST MEDICAL HISTORY: Significant for hyperlipidemia, hypertension, a stroke in the past, and CVA. SOCIAL HISTORY: Denies any smoking. Denies any history of alcohol abuse. RECENT CARDIAC WORKUP: As follows; patient had a stress test dated 04/08/2018 that shows abnormal myocardial perfusion study, partially reversible suspicious of ischemia, ejection fraction 78%. Patient had an echocardiography done on 04/21/2018 that shows ejection fraction is 68%, mild mitral regurgitation, mild tricuspid regurgitation, small posterior loculated pericardial effusion, not significant. CURRENT MEDICATIONS: Patient is taking vitamin D, atorvastatin 10 mg, Plavix 75 mg daily, [place]-3 1 g twice a day. ALLERGIES: NO KNOWN DRUG ALLERGIES. REVIEW OF SYSTEMS: As per HPI. PHYSICAL EXAMINATION VITAL SIGNS: Height of the patient 5 feet 5 inches, weight of the patient 175 pounds, and body mass index 29.1 kg/m2. Rest of the vitals; temperature afebrile, heart rate 68, and blood pressure 130/80. HEENT: PERRLA. Extraocular muscles intact. NECK: Supple. No carotid bruits. No thyromegaly. CHEST: Clear to auscultation. HEART: S1 and S2 regular. ABDOMEN: Soft. EXTREMITIES: Clubbing and cyanosis negative. LABORATORY DATA: Blood workup last 07/07/2017; WBC 5.3, hemoglobin 11, hematocrit 35.3, and platelet count 229. Chemistry shows last available 07/07/2017; sodium 137, potassium 3.8, chloride 100, carbon dioxide 29, anion gap of 29, BUN 12, and creatinine 0.8. IMPRESSION AND PLAN: A 73-year-old female with past medical history significant for diabetes, hypertension, hyperlipidemia, abnormal stress in April, history of cerebrovascular accident and transient ischemic attack, admitted for elective cardiac catheterization with possible angioplasty. Risk, benefit, and alternative discussed. Patient is agreeable. We will proceed for cardiac catheterization. Further recommendations after cardiac catheterization. We will follow with you. Thank you Dr. Post, for providing us the opportunity in taking care of the patient, Briana Dobbins. Benjamin Tolentino MD [email or web address]
[2018-08-25] MEDS ORDERED: Iohexol 350mgl/ml 50 ML ONE (06:44)
[2018-08-25] MEDS ORDERED: Iodixanol 320 MG/ML 100 ML BOTTLE IV ONE (06:44)
[2018-08-25] MEDS ORDERED: Verapamil 0 ML ONE (06:44)
[2018-08-25] MEDS ORDERED: Lidocaine PF 2% (5 ml) Inj (For Cardiac Arrhy) ONE (06:44)
[2018-08-25] MEDS ORDERED: Phenylephrine 10 mg/ml Inj ONE (06:44)
[2018-08-25] MEDS ORDERED: Iodixanol 320 MG/ML 200 ML BOTTLE IV ONE (06:44)
[2018-08-25] MEDS ORDERED: Nitroglycerin 50mg in D5W 50 MG/250 ML BOTTLE IV ONE (06:45)
[2018-08-25] MEDS ORDERED: Heparin 2,000 ML IV ONE (06:45)
[2018-08-25 07:11] LABS: BASO # 0.02 K/mm3 (0.0-2.0); BASO % 0.3 % (0.0-3.0); EOS # 0.2 (0.0-0.7); EOS % 2.9 % (1.5-5.0); HEMOGLOBIN 12.2 g/dL (12.0-16.0); LYMPH # 2.7 (1.2-3.4); LYMPH % 37.4 % (22.0-35.0); MEAN CELL VOLUME 86.8 fl (80.0-105.0); MEAN CORPUSCULAR HEMOGLOBIN 28.2 pg (25.0-35.0); MEAN CORPUSCULAR HGB CONC 32.4 g/dl (31.0-37.0); MEAN PLATELET VOLUME 9.8 fl (7.0-11.0); MONO # 0.5 (0.1-0.6); MONO % 7.2 % (1.0-6.0); RBC 4.33 10^6/uL (3.5-6.1); RED CELL DISTRIBUTION WIDTH 14.2 % (11.5-14.5); WHITE BLOOD COUNT 7.2 10^3/uL (4.5-11.0)
[2018-08-25 07:18] LABS: INR 1.09; PARTIAL THROMBOPLASTIN TIME 32.6 Seconds (26.9-38.3); PROTHROMBIN TIME 12.3 SECONDS (9.4-12.5)
[2018-08-25 07:19] LABS: BLOOD UREA NITROGEN 17 mg/dL (7-21); CALCIUM 9.6 mg/dL (8.4-10.5); GFR NON-AFRICAN AMERICAN > 60; HDL CHOLESTEROL 46 mg/dL (29-60)
[2018-08-25 07:30] LABS: LDL CHOLESTEROL 74 mg/dL (0-129)
[2018-08-25] MEDS ORDERED: Midazolam 2 MG/2 ML VIAL ONE ×2 (07:43→08:02)
[2018-08-25] MEDS ORDERED: Sodium Chloride 0.9% 1,000 ML IV SCH (08:45)
[2018-08-25 09:06] VITALS: TEMP 97.6
[2018-08-25] MEDS ORDERED: Oxycodone/Acetaminophen 5/325 mg Tab PO STA (09:14)
--- NOTE | 2018-08-25 09:15 | CPOSTOP ---
DATE: 08/25/2018 CARDIOVASCULAR LAB POST PROCEDURE NOTE DICTATING PHYSICIAN: Benjamin Tolentino MD HEAD TURBINE OPERATOR: MALIA Sears. TYPE OF ANESTHESIA: Moderate conscious sedation, total of 3 mg of Versed, 150 of fentanyl given. Started 1 mg Versed and 50 of fentanyl. PRE-PROCEDURE DIAGNOSIS: Angina. PROCEDURE PERFORMED: Left heart catheterization. FINDINGS: Nonobstructive coronary artery disease. FINAL DIAGNOSIS: Nonobstructive coronary artery disease. POST PROCEDURE: Patient's condition is stable. VASCULAR ACCESS SITE: Right femoral artery. CLOSURE DEVICE: Mynx. TOTAL RADIATION DOSE: Total 7465.22 milligray unit. TOTAL FLUORO TIME: 3.8 minutes. Benjamin Tolentino MD
[2018-08-25] MEDS ORDERED: Oxycodone/Acetaminophen 5/325 mg Tab ONE (09:20)
[2018-08-25 09:40] VITALS: RESP 16
[2018-08-25 12:08] VITALS: O2SAT 98
[2018-08-25 12:41] VITALS: BP 134/71; PULSE 66
--- NOTE | 2018-08-25 14:16 | CARD ---
APPROVED REPORT Date of service: 08/25/2018 Procedure(s) performed: Left Heart Catheterization HISTORY The patient is a 73 year-old female with a history of : most recent EF: 78%. (EF Method: RADIONUCLIDE), previous CVA remote >= 2 weeks, diabetes mellitus with diet treatment , tobacco history() : The patient is a former smoker , hypertension , dyslipidemia , cerebrovascular disease . INDICATION The indication(s) include : positive stress test. CASE TECHNIQUE The patient was brought electively to the Cardiac Catheterization Laboratory in a fasting state and was prepped and draped in a sterile manner. The right femoral groin was infiltrated with 2% Lidocaine subcutaneous anesthesia. A 6FR GLIDESHEATH ACCESS KIT sheath was inserted into the right femoral artery without difficulty. Coronary angiography was performed using coronary diagnostic catheters. The left coronary system was accessed and visualized with a Diagnostic ,5 Fr JL 3.5 catheter. The right coronary system was accessed and visualized with a Diagnostic ,5 Fr JR 4 catheter. The left ventricle was accessed and visualized with a 5 Fr Pigtail 145 (Angled) catheter. Left ventricular/Aortic Valve gradient assessed on pullback. Left ventriculogram was performed in NICK projection. Closure device was deployed with a 6 Fr / 7 Fr MynxGrip without any complications. The patient tolerated the procedure well and there were no complications associated with the procedure. Vessel Analysis The patient's coronary anatomy is right dominant. The left main coronary artery is a large size vessel without significant stenosis. The left main bifurcates to the left anterior descending and circumflex. The left anterior descending artery is a medium size vessel with intimal irregularities and without significant stenosis. The first diagonal branch is a medium size vessel with intimal irregularities and without significant stenosis. The second diagonal branch is a small size vessel with diffuse calcification noted throughout this vessel and without significant stenosis. The circumflex artery is a medium size vessel without significant stenosis. The first obtuse marginal branch is a medium size vessel with diffuse calcification noted throughout this vessel and without significant stenosis. There is a 40-50% stenosis in the proximal segment. The second obtuse marginal branch is a medium size vessel with diffuse calcification noted throughout this vessel and without significant stenosis. The right coronary artery is a large size vessel with diffuse calcification noted throughout this vessel and without significant stenosis. There is a 50-55% stenosis in the mid segment. The right posterior descending artery is a medium size vessel with diffuse calcification noted throughout this vessel and without significant stenosis. The right posterolateral branch is a medium size vessel with diffuse calcification noted throughout this vessel and without significant stenosis. Left Ventricle The left ventricle is normal in size with normal contractility. There was no cardiomyopathy. The left ventricular ejection fraction is estimated to be 55-60%. The left ventricular end diastolic pressure is 15 mmHg. There was no gradient across the aortic valve upon pullback. Conclusion Non obstructive CAD limited to Mid RCA 55%, non flow limiting. Preserved Lv Fx. EF-55-60%, EDP_15 mmof Hg. Pt.'s cath was done from RFA and Radial b/c of Hx of CVA. Recommendations Aggressive Medical TherapyCardiac Risk Reduction Program Weight Loss Reduction Program Cc; laura; Sejal/ Berenice.
[2018-08-25 15:16] LABS: BASO # 0.01 K/mm3 (0.0-2.0); BASO % 0.1 % (0.0-3.0); EOS # 0.1 (0.0-0.7); EOS % 0.6 % (1.5-5.0); HEMOGLOBIN 12.1 g/dL (12.0-16.0); LYMPH # 1.8 (1.2-3.4); LYMPH % 16.6 % (22.0-35.0); MEAN CELL VOLUME 86.8 fl (80.0-105.0); MEAN CORPUSCULAR HEMOGLOBIN 28.6 pg (25.0-35.0); MEAN PLATELET VOLUME 9.5 fl (7.0-11.0); MONO # 0.4 (0.1-0.6); MONO % 3.9 % (1.0-6.0); RBC 4.23 10^6/uL (3.5-6.1); RED CELL DISTRIBUTION WIDTH 14.2 % (11.5-14.5); WHITE BLOOD COUNT 10.9 10^3/uL (4.5-11.0)
[2018-08-25 15:27] LABS: BLOOD UREA NITROGEN 14 mg/dL (7-21); CALCIUM 9.6 mg/dL (8.4-10.5); GFR NON-AFRICAN AMERICAN > 60
--- NOTE | 2018-08-25 22:50 | CARD ---
APPROVED REPORT Date of service: 08/25/2018 EKG Measurement Heart [id number] <Conclusion> Normal sinus rhythm Possible inferior infarct, age undetermined Abnormal ECG
== END 2018-08-25 16:00 | disposition home or self-care (01) ==
LOC: CATH 06:20
PROVIDERS: ATTEND Internal Medicine Cardiovascular Disease
DX: I25.119 Atherosclerotic heart disease of native coronary artery with unspecified angina pectoris (principal); I10 Essential (primary) hypertension; E11.9 Type 2 diabetes mellitus without complications; E78.5 Hyperlipidemia, unspecified; I08.1 Rheumatic disorders of both mitral and tricuspid valves; Z86.73 Personal history of transient ischemic attack (TIA), and cerebral infarction without residual deficits; Z87.891 Personal history of nicotine dependence